=== PATIENT | male | born 1990 | race Caucasian/White ===

== ENCOUNTER → 2020-04-01 14:45 | Outpatient (CLI) | payer BC, SELFPAY ==
--- NOTE | 2020-04-01 | CA_ITS ---
APPROVED REPORT EXAM: Comprehensive 2D, Doppler, and color-flow Echocardiogram Patrol Sergeant: Shanthi Gutiérrez CRT Ht: 5 ft 11 in Wt: 343lbs BSA: 2.65 BP: 142/88 mmHg Indications: edema, smoker, HTN, former substance abuse, morbid obesity 2D Dimensions LVOT 2.06 cm (M/F) 1.5-2.5 M-Mode Dimensions RVDd 2.50 cm (0.9-2.6) LVDd 4.47 cm (3.5-5.7) LVDs 3.39 cm (3.5-5.7) IVSd 1.03 cm (0.6-1.1) PWd 1.16 cm (0.6-1.1) EF (Teich) 48.20% FS 24.20% EDV (Teich) 91.00 mL ESV (Teich) 47.10 mL LV Diastology E/A Ratio 1.33 Mitral Valve MV A Velocity 65.00 (40-130 cm/s) Left Ventricle Left atrium is normal size, left ventricle is normal size, there is no concentric left ventricular hypertrophy, visually estimated ejection fraction 55% with no regional wall motion abnormality, diastolic parameters are within normal range. Right Ventricle Right atrium and right ventricle is normal size and contractility. Aortic Valve Aortic valve is grossly normal, there is no aortic stenosis or aortic insufficiency. Mitral Valve Mitral valve is grossly normal, there is mild mitral regurgitation. Tricuspid Valve Tricuspid valve grossly normal, there is mild tricuspid regurgitation. Tricuspid regurgitation jet velocity is inadequate for calculation of the right ventricular systolic pressure. Pulmonic Valve Pulmonic valve is poorly visualized. Great Vessels Aortic root is normal size. Pericardium No significant pericardial effusion noted. Conclusion 1. Normal left ventricular size, preserved left ventricular systolic function, visually estimated ejection fraction 55% with no regional wall motion abnormality, diastolic parameters are within normal range. 2. Mild mitral and tricuspid regurgitation. 3. No significant pericardial effusion noted. Electronically signed by : Zeus Ramirez, 04/01/2020 17:56:33
== END ==
PROVIDERS: PCP Nurse Practitioner Family; Visit Provider Nurse Practitioner Family
DX: R60.0 Localized edema (principal)
CPT/HCPCS: 93306

== ENCOUNTER → 2020-04-18 13:08 | Outpatient (CLI) | payer BC, SELFPAY | PROVIDERS: PCP Nurse Practitioner Family; Visit Provider Internal Medicine Cardiovascular Disease | DX: G47.33 Obstructive sleep apnea (adult) (pediatric) (principal); R40.0 Somnolence; R06.83 Snoring; R53.83 Other fatigue; I10 Essential (primary) hypertension | CPT/HCPCS: G0399 ==

== ENCOUNTER → 2020-04-19 07:55 | Outpatient (CLI) | payer BC, SELFPAY ==
--- NOTE | 2020-04-19 08:00 | CA_ITS ---
APPROVED REPORT Technologist: Ronna Rodriguez, Ht: 5 ft 10 in Wt: 338 lbs BSA: 2.61 m2 HR: 68 bpm BP: 110/78 mmHg Rhythm: NSR Indications: Chest Pain, Dyspnea Medical History Medical History: HTN Medications: Lisinopril/HCTZ,,,,, Cardiac Risk Factors: HTN, FHX of CAD Stress Test Details Test: Mati HR Resting HR: 70 bpm Max Heart Rate (APMHR): 188 bpm Max HR Achieved: 164 bpm Target HR (85% APMHR): 159 bpm % of APMHR: 87 Recovery HR: 134 bpm BP Resting BP: 110/78 mmHg Max BP: 170/80 mmHg Recovery BP: 170.0/80.[address] Deviation: 0.5 mm Clinical Exercise duration: 06:49 min Highest Stage Achieved: Exercise capacity: 7.0 METs Stress ECG Conclusion Mati protocol completed. Exercised 06:49. Mets 7.0. Max BP 170/80. Max HR 164 bpm. Stopped due to SOB. No CP, SOB at peak exercise. Occasional PVC, Occasional PAC 1.[address] Depression noted in Inferior leads. 1 GXT only 2 No CP, SOB at peak exercise 3 Appropriate BP response 4 Average exercise tolerated 5 Occasional PVC and PAC [address] depression noted in Inferior leads 7. Abnormal exercise treadmill stress test Electronically signed by : Zeus Ramirez, 04/19/2020 13:46:19
== END ==
PROVIDERS: PCP Nurse Practitioner Family; Visit Provider Internal Medicine Cardiovascular Disease
DX: R07.9 Chest pain, unspecified (principal); R06.00 Dyspnea, unspecified; R94.31 Abnormal electrocardiogram [ECG] [EKG]
CPT/HCPCS: 93017

== ENCOUNTER 2020-05-07 08:13 | Day surgery (SDC) | payer BC, SELFPAY ==
[2020-05-07] VITALS (12 sets, daily range): BP systolic 106–154; BP diastolic 61–89; PULSE 64–88; RESP 16; TEMP 36.8; O2SAT 95–99; BMI 48.7
[2020-05-07 08:54] LABS: Basophils % 0.3 % (0.1-2.0); Eosinophils # 0.3 K/mm3 (0.0-0.4); Eosinophils % 2.8 % (0.1-12.0); Hematocrit 43.6 % (42.0-52.0); Hemoglobin 14.9 g/dL (14.1-18.0); Lymphocytes # 2.6 K/mm3 (0.7-4.5); Lymphocytes % 23.6 % (10-50); Mean Corpuscular Volume 85.3 fl (80-94); Mean Platelet Volume 7.2 fl (7.4-10.4); Monocytes # 0.6 K/mm3 (0.1-1.0); Monocytes % 5.8 % (1.7-9.3); Neutrophils # 7.4 K/mm3 (1.8-7.8); Neutrophils % 67.4 % (37.0-80.0); Platelet Count 361 K/mm3 (142-424); Red Blood Count 5.12 M/mm3 (4.60-6.20); Red Cell Distribution Width 13.2 % (11.5-17.5)
--- NOTE | 2020-05-07 09:00 | IR_ITS ---
APPROVED REPORT Patient Location: Outpatient [facility] Operator: BRUNO Soria RT (R) PROCEDURES Left heart catheterization Left ventriculogram Selective coronary angiogram INDICATION Abnormal stress test Informed consent was obtained prior to the procedure. COMPLICATIONS None Estimated Blood Loss: None less than 10 ml TECHNIQUE One percent lidocaine used to anesthetize the right anterior aspect of the wrist. The right radial artery was accessed via the Seldinger technique. A 6 Ecuadorean sheath was placed in the right radial artery. 2.5 mg of verapamil, 800 mcg of nitroglycerin, 1mg Lidocaine and 5000 U Heparin were given through the arterial sheath. The trap catheter was also used to perform left heart catheterization, left ventriculogram and selective coronary angiogram. At the end of the procedure the sheath was removed good hemostasis was achieved using Traclet band, patient was transferred to the postop holding area in stable condition. ANGIOGRAPHIC RESULTS The left main artery Normal The left anterior descending artery Normal The circumflex artery Normal The right coronary artery Dominant normal The WOLFE ventriculogram reveals Normal 65% The left ventricular end-diastolic pressure Elevated at 25 mmHg IMPRESSION Normal coronary arteries Normal ejection fraction Moderately elevated LVEDP PLAN 1. Medical management Electronically signed by : Surya Casey, 05/07/2020 14:27:57
[2020-05-07 09:02] LABS: Blood Urea Nitrogen 14 mg/dl (9-20); Calcium 9.4 mg/dl (8.4-10.2); Carbon Dioxide 25 mmol/L (22.0-30.0); Chloride 102 mmol/L (98-107); Creatinine Clearance Estimated 156 mL/min (50-200); Estimated Glomerular Filt Rate 131 ml/min (>60); GFR (African American) 158 ML/MIN (>60); Glucose 105 mg/dl (74-100); Sodium 137 mmol/L (136-145)
[2020-05-07 09:38] LABS: Coronavirus 19 IgG Antibody Negative (Negative); Coronavirus 19 IgM Antibody Negative (Negative)
== END 2020-05-07 14:03 | disposition home or self-care (01) ==
LOC: CATHLAB 08:14
PROVIDERS: PCP Nurse Practitioner Family; Visit Provider Internal Medicine
DX: I20.8 Other forms of angina pectoris (principal); E78.5 Hyperlipidemia, unspecified; G47.33 Obstructive sleep apnea (adult) (pediatric); I10 Essential (primary) hypertension; R06.00 Dyspnea, unspecified; R94.31 Abnormal electrocardiogram [ECG] [EKG]; R94.39 Abnormal result of other cardiovascular function study
CPT/HCPCS: 80048; 85025; 86328; 93458; 99152; C1725; C1760; C1769; J1644; Q9967

== ENCOUNTER → 2021-08-26 12:11 | Outpatient (CLI) | payer BC, SELFPAY | PROVIDERS: PCP Family Medicine; Visit Provider Nurse Practitioner | DX: U07.1 COVID-19 (principal) | CPT/HCPCS: C9803; U0003; U0005 ==

== ENCOUNTER 2022-05-09 21:53 | Emergency (ER) | payer BC, SELFPAY ==
--- NOTE | 2022-05-09 22:09 | PC.NURSE ---
UPON ARRIVAL TO ER FROM EMS, PT REFUSES TO BE SEEN. PT STATES HE HAD CBD GUMMIES AND THEY HIT ME HARD PT STATES HE FEELS BETTER NOW AND WOULD LIKE TO LEAVE. VS 145/56 HR 109 SP02 98% TEMP 98.1. PT ALERT AND ORIENTED X 4.
[2022-05-09 22:12] VITALS: BP 145/56; PULSE 108; RESP 16; TEMP 36.7; O2SAT 97
== END 2022-05-09 22:13 | disposition left against medical advice (07) ==
PROVIDERS: Emergency Provider Emergency Medicine
DX: Z53.21 Procedure and treatment not carried out due to patient leaving prior to being seen by health care provider (principal)

== ENCOUNTER → 2022-06-11 11:21 | Outpatient (CLI) | payer OTHER, SELFPAY ==
--- NOTE | 2022-06-11 11:52 | ECG_ITS ---
APPROVED REPORT Exam: Resting ECG HR:84 bpm ECG Measurements Heart Rate 84 AXES MS 168 P 38 QRSd 108 QRS 15 QT 344 T 56 QTc 385 Conclusion SINUS RHYTHM NORMAL ECG UNCONFIRMED REPORT Electronically signed by : Lucius Martinez MD 06/11/2022 20:05:25
== END ==
PROVIDERS: PCP Nurse Practitioner Family; Visit Provider Nurse Practitioner Family
DX: Z01.818 Encounter for other preprocedural examination (principal)
CPT/HCPCS: 93005

== ENCOUNTER → 2022-07-21 11:06 | Outpatient (CLI) | payer OTHER, SELFPAY ==
--- NOTE | 2022-07-21 11:19 | ECG_ITS ---
APPROVED REPORT Exam: Resting ECG HR:70 bpm ECG Measurements Heart Rate 70 AXES TN 158 P 247 QRSd 105 QRS 55 QT 364 T 11 QTc 385 Conclusion ECTOPIC ATRIAL RHYTHM ABNORMAL RHYTHM ECG UNCONFIRMED REPORT Electronically signed by : Lucius Martinez MD 07/23/2022 20:16:34
== END ==
PROVIDERS: PCP Family Medicine; Visit Provider Nurse Practitioner Family
DX: Z01.818 Encounter for other preprocedural examination (principal)
CPT/HCPCS: 93005

== ENCOUNTER 2022-08-03 11:08 | Emergency (ER) | payer OTHER, SELFPAY ==
[2022-08-03 14:05] VITALS: BP 120/72; PULSE 112; RESP 20; TEMP 36.7; O2SAT 98; BMI 53.1
--- NOTE | 2022-08-03 14:20 | EXP.UTC ---
Discharge Plan Disposition Patient Disposition: Home, Self-Care Condition: Good Prescriptions Prescriptions: New oseltamivir [Tamiflu] 75 mg capsule 75 mg PO BID Qty: 10 0RF No Action lisinopril-hydrochlorothiazide 20-12.5 mg tablet 1 tab PO DAILY Referrals Follow up/Referrals: Traci Villafana APRN [Primary Care Provider] - See instructions Activity Restrictions/Add. Instructions Additional Instructions/Restrictions: Start Tamiflu today if you are going to take it. Discussed risk and possible benefits. Lots of rest Increase Fluids water, Gatorade, powerade, pedialyte,if infant/toddler/child Alternate Tylenol and / or ibuprofen as discussed for fever, aches, chills Follow up IMMEDIATELY with your family doctor for new or worsening Symptoms OR no noticeable improvement over the next 48-72 hours, 911 for difficulty or breathing You or your child area contagious until no fever, aches, chills for 24 hours with medication for symptoms Help Prevent the spread of influenza: ?Wash your hands often. Use soap and water. Wash your hands after you use the bathroom, change a child's diapers, or sneeze. Wash your hands before you prepare or eat food. Use gel hand cleanser that has 60% alcohol, when soap and water are not available. Do not touch your eyes, nose, or mouth unless you have washed your hands first. Cover your mouth when you sneeze or cough. Cough into a tissue or the bend of your arm. If you use a tissue, throw it away immediately and wash your hands. Clean shared items with a germ-killing quill cleaner. Clean table surfaces, doorknobs, and light switches. Do not share towels, silverware, and dishes with people who are sick. Wash bed sheets, towels, silverware, and dishes with soap and water. Wear a mask over your mouth and nose if you are sick. The face mask may help protect others from becoming infected with the flu. Wear the mask when in common areas of your home or if you seek care with a healthcare provider. Stay away from others if you are sick. Stay at home until 24 hours after your fever and symptoms are gone. Clinical Impressions Clinical Impression: Influenza A Instructions Patient Instructions: DI for Influenza -- Adult, Influenza, Oseltamivir Discharge ED Provider: Allie Palumbo [facility] HPI General Stated complaint: Flu exposure, nausea, lightheaded, cough Time Seen by Provider: 08/03/22 14:20 History of Present Illness Provider Complaint: Patient states that he lives with his uncle that just tested positive for the flu states that he has started having symptoms States that he has been having body aches, chills, felt a little light headed yesterday and wanted to get tested for the flu Related Data Home Medications Medication Instructions Recorded Confirmed lisinopril 20 1 tab PO DAILY Hypertension 04/12/20 08/03/22 mg-hydrochlorothiazide 12.5 mg tablet Previous Rx's Medication Instructions Recorded oseltamivir 75 mg capsule (Tamiflu) 75 mg PO BID #10 caps 08/03/22 Allergies Allergy/AdvReac Type Severity Reaction Status Date / Time No Known Allergies Allergy Verified 06/19/20 15:13 [facility] Disclaimer: The information contained in this section may have been updated after the patient was seen, as this information can be updated by other users. Medical History (Updated 08/03/22 @ 14:29 by Allie Palumbo APRN) Abnormal cardiovascular stress test Anxiety Atypical angina Hypertension Migraine Tobacco dependence syndrome Social History (Updated 08/03/22 @ 14:20 by Nika Cisneros RN) Smoking Status: Current every day smoker tobacco type: e-cigarettes alcohol intake: current substance use type: former substance user and crack/cocaine current occupational status: employed Travel in the last 8 wee
[2022-08-03 14:29] LABS: UTC Influenza A Antigen Positive (Negative); UTC Influenza B Antigen Negative (Negative)
[2022-08-03 14:30] VITALS: BP 120/72; PULSE 112; RESP 20; TEMP 36.7; O2SAT 98
== END 2022-08-03 14:39 | disposition home or self-care (01) ==
PROVIDERS: Emergency Provider Nurse Practitioner; PCP Nurse Practitioner Family
DX: J10.1 Influenza due to other identified influenza virus with other respiratory manifestations (principal)
CPT/HCPCS: 87804; 99212; G0463

== ENCOUNTER → 2023-02-08 11:39 | Outpatient (CLI) | payer OTHER, SELFPAY ==
--- NOTE | 2023-02-08 11:50 | ECG_ITS ---
APPROVED REPORT Exam: Resting ECG HR:90 bpm ECG Measurements Heart Rate 90 AXES IA 181 P 41 QRSd 107 QRS -5 QT 334 T 70 QTc 382 Conclusion SINUS RHYTHM NONSPECIFIC T-WAVE ABNORMALITY BORDERLINE ECG UNCONFIRMED REPORT Electronically signed by : Lucius Martinez MD 02/09/2023 20:13:30
== END ==
PROVIDERS: PCP Nurse Practitioner Family; Visit Provider Nurse Practitioner Family
DX: Z01.818 Encounter for other preprocedural examination (principal)
CPT/HCPCS: 93005

== ENCOUNTER 2023-12-14 13:04 | Outpatient (CLI) | payer OTHER, SELFPAY ==
--- NOTE | 2023-12-14 | US_ITS ---
FINAL REPORT CLINICAL HISTORY: Current smoker, HTN, bilateral skin color changes, bilateral claudication. COMPARISON: None FINDINGS: ANKLE-BRACHIAL PRESSURE INDICES Pressure indices are as follows: RIGHT LOWER EXTREMITY: Ankle-brachial pressure index: 1.13 Comments: Normal LEFT LOWER EXTREMITY: Ankle-brachial pressure index: 1.07 Comments: Normal IMPRESSION: No evidence of significant obstructive peripheral vascular disease of the lower extremities Reviewed, Interpreted and Dictated by Malick Dennis MD Transcribed by Kylie Avilez Authenticated and [facility]
== END 2023-12-14 23:59 | disposition home or self-care (01) ==
LOC: RT 13:04
PROVIDERS: PCP Nurse Practitioner Family; Visit Provider Nurse Practitioner Family
DX: I10 Essential (primary) hypertension (principal); R20.2 Paresthesia of skin; R60.0 Localized edema; I70.213 Atherosclerosis of native arteries of extremities with intermittent claudication, bilateral legs
CPT/HCPCS: 93923

== ENCOUNTER 2024-04-14 10:00 | Outpatient (RCR) | payer OTHER, SELFPAY ==
--- NOTE | 2024-01-03 10:52 | HMH.PTOPWND ---
Rehab Outpt Wound Evaluation Rehab OP Wound Evaluation Start: 01/03/24 10:41 Freq: Status: Active Protocol: Document 01/03/24 10:41 LORENZO (Rec: 01/03/24 10:52 LORENZO [id number]) E-signed By Keith Martinez, PT Subjective/History History History This is the initial PT eval for Stan Rashid, 33 yowm who presents with increased L LE edema x ~ 1-2 mos with insidious onset of symptoms. He reports a similar episode ~ 1 yr ago that was treated successfully with HTN meds. He reports increased tenderness and intermittent pain in the L LE. 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 He has hx of INNA, HTN, and HLD. Subjective Subjective He reports 0/10 at this time, but intermittent pains 3/10 in the L lower leg. Mild blanchable erythema noted in the L LE. 1+ pitting edema to L lower leg and foot this date . 2/4 TTP to L lower leg in the gaiter area. New diagnosis of cancer in past 12 No months? Lymphedema Eval Classification of Lymphedema Secondary Lymphedema Yes: likely CVI Stemmer's sign Stemmer's Sign yes Stage of Lymphedema Lymphedema stages Stage I (Pitting edema, reduces w/ elevation, no fibrosis) Skin Changes Dry Skin Yes Redness Yes Discoloration of Skin Yes Other Changes Yes Pain Scale Pain Scale (0-10) 3 Affected Extremities Areas Affected by Lymphedema/Edema Left Lower Extremity Lower Extremity Measurements Left MTP Measurement (cm) 29.4 Heel Measurement (cm) 39.5 10 cm Proximal to Lateral Malleoli 38.9 Measurement (cm) 20 cm Proximal to Lateral Malleoli 44.8 Measurement (cm) 30 cm Proximal to Lateral Malleoli 53.4 Measurement (cm) 40 cm Proximal to Lateral Malleoli 48.7 Measurement (cm) 50 cm Proximal to Lateral Malleoli 0 Measurement (cm) 60 cm Proximal to Lateral Malleoli 0 Measurement (cm) Lower Extremity Measurement Total (cm) 254.7 Manual Lymphatic Drainage Treatment Area MLD Treatment Area Left Lower Extremity Wound Problems/Impairments Impairments Problems/Impairmments Palpation Tenderness,Impaired Endurance,Impaired Walking, Impaired Standing,Impaired Dressing,Impaired Household Care,Impaired Recreational Activities,Increased Edema, Lymphedema Present,Subjective C/O Pain,Impaired Self Care/ Self Management Prognosis Rehab Potential Good Clinical Impression Consistent with Diagnosis Yes Short Term Goals Number of Weeks 2 Decreased Palpation Tenderness Yes: 1/4 L LE Decrease Edema Yes: No pitting edema L lower leg Decrease Subjective C/O Pain Yes: 2/10 at worst L LE Patient to Understand Lymphedema Yes Treatment and Exercises Decrease Girth Measurments by (cm) Yes: L LE total by 5 cm Traffic Signal Mechanic Goals Number of Weeks 4 Decreased Palpation Tenderness Yes: 0/4 L LE Improve Ability For Household Care Yes Decrease Lymphedema Yes: No fibrotic edema L LE Decrease Subjective C/O Pain Yes: 0/10 L LE Patient to be Ind w/ HEP Yes Patient to be Ind w/ Donning/Erwin Yes Compression Garments Patient to Adhere Lymphedema Precautions Yes Decrease Girth Measurments by (cm) Yes: L LE total by 15 cm Outpatient Therapy Plan of Care Treatment Plan May Include Therapeutic Exercise Including Home Yes Exercise Program Manual Therapy Techniques Yes Neuromuscular Re-education Yes Therapeutic Activities to Return to Yes Previous Functional/Work Level ADL/Self Care Education Yes Orthotics/Bracing/Splinting Yes Vasopneumatic Compression Pump Yes Manual Lymphatic Drainage Yes Eval/Re-Eval Yes Frequency Times per week 2 Duration Number of Weeks 4 Addendums This patient is a candidate for social No or vocational rehab? Patient/Guardian verbally acknowledges Yes understanding of treatment program and consents to further treatment? Patient/Guardian verbally acknowledges Yes understanding of diagnosis, prognosis and goals for treatment? Eval Complexity PT Charges 03955 - High Complexity PHYSICIAN CERTIFICATION: I certify the specified therapy services for Stan Rashid are required, authorized, and reviewed every 30 days.
--- NOTE | 2024-02-01 10:48 | HMH.RHREAS ---
Rehab Reassessment Rehab OP Re-assessment Start: 01/03/24 10:41 Freq: Status: Active Protocol: Document 02/01/24 10:41 LORENZO (Rec: 02/01/24 10:47 LORENZO Laptop) E-signed By Keith Martinez, PT Rehab Re-assessment Subjective Subjective Pt reports no pain in the L LE this date. He feels less swelling overall and no tenderness. He does report, My leg feels about the same with moving around, it doesn't feel a lot different. Objective Objective Notes Circumferential Measurements: L LE total is 238.2 cm which is -16.5 cm since IE. TTP: 0/4 TTP to L LE this date . Edema: 1+ pitting edema remains in the L foot and ankle. Pain: 0/10 currently. Assessment Progress Assessment Progressing as Expected Assessment Notes Pt has shown significant reduction in overall edema based on circumferential measurements of the L LE. He does continue to have 1+ pititng edema in his L LE and continues to need skilled intervention to return to PLOF . Patient goals met ST/[address]/5 LT/8 Plan Plan Continue per initial POC. Frequency of Therapy 2 x/wk Duration of therapy 4 wks Time and Billing Re-Eval Time 12 Re-Eval Billing Units 1 PHYSICIAN CERTIFICATION: I certify the specified therapy services for Stan Rashid are required, authorized, and reviewed every 30 days.
--- NOTE | 2024-03-07 14:23 | HMH.RHREAS ---
Rehab Reassessment Rehab OP Re-assessment Start: 01/03/24 10:41 Freq: Status: Active Protocol: Document 03/07/24 14:20 LORENZO (Rec: 03/07/24 14:23 [email or web address] [id number]) E-signed By Keith Martinez PT Rehab Re-assessment Subjective Subjective Pt reports no pain and less discomfort overall. He continues to have mild heaviness in the L LE which can limit his ability to perform some ADLs at times. Objective Objective Notes Circumferential Measurements: L LE total is 235.5 cm which is -19.2 cm since IE. TTP: 0/4 TTP to L LE this date . Edema: 1+ pitting edema remains in the L foot and ankle. Pain: 0/10 currently. Assessment Progress Assessment Progressing as Expected Assessment Notes Pt continues to show significant reduction in overall edema based on circumferential measurements of the L LE. He does continue to have 1+ pitting edema in his L LE and continues to need skilled intervention to return to PLOF. Patient goals met ST/[address] Goals Not Met ST/5 LT/8 Plan Plan Continue per initial POC. Frequency of Therapy 2 x/wk Duration of therapy 4 wks Time and Billing Re-Eval Time 13 Re-Eval Billing Units 1 PHYSICIAN CERTIFICATION: I certify the specified therapy services for Stan Rashid are required, authorized, and reviewed every 30 days.
--- NOTE | 2024-04-14 16:11 | HMH.RHREAS ---
Rehab Reassessment Rehab OP Re-assessment Start: 01/03/24 10:41 Freq: Status: Active Protocol: Document 04/14/24 16:07 LORENZO (Rec: 04/14/24 16:11 [email or web address] [id number]) E-signed By Keith Martinez, PT Rehab Re-assessment Subjective Subjective Pt reports, I feel a whole lot better overall, My leg doesn't hurt anymore. He reports only minimal edema at this time and is happy with his compression garments. Objective Objective Notes Circumferential Measurements: L LE total is 234.1 cm which is -20.6 cm since IE. TTP: 0/4 TTP to L LE this date . Edema: 1+ pitting edema remains in the L foot and ankle. Pain: 0/10 currently. Assessment Progress Assessment Progressing as Expected Assessment Notes Pt appears to have reduced all L LE significantly and may be at a plateau for treatment at this time. Will d/c pt after this date unless complications return. Patient goals met ST/5 LT/8 Plan Plan Continue per initial POC. Frequency of Therapy 0 Duration of therapy 0 Time and Billing Re-Eval Time 10 Re-Eval Billing Units 1 PHYSICIAN CERTIFICATION: I certify the specified therapy services for Stan Rashid are required, authorized, and reviewed every 30 days.
== END 2024-04-14 10:05 | disposition home or self-care (01) ==
LOC: PT 10:00
PROVIDERS: Visit Provider Nurse Practitioner Family
DX: R60.0 Localized edema (principal); M79.605 Pain in left leg
CPT/HCPCS: 97140; 97163; 97164